=== PATIENT | female | born 1955 | race Caucasian/White ===

== ENCOUNTER 2023-03-24 13:49 | Inpatient (IN) | payer MEDICARE, BC ==
[~2023-03-24] VITALS: Ht 157.5 cm; Wt 45.8 kg
[2023-03-24 15:27] LABS: BASOPHILS # (AUTO) 0.1 K/uL (0.0-0.2); BASOPHILS % (AUTO) 1.1 % (0.0-2.0); EOSINOPHILS % (AUTO) 0.2 % (0.0-6.0); HEMATOCRIT 32 % (33-45); HEMOGLOBIN 10.9 g/dL (11.5-14.8); LYMPHOCYTES # (AUTO) 0.8 K/uL (0.8-4.8); LYMPHOCYTES % (AUTO) 11.2 % (20.0-44.0); MEAN CORPUSCULAR HEMOGLOBIN 37 PG (26.0-33.0); MEAN CORPUSCULAR HGB CONC 34 g/dl (31.0-36.0); MEAN CORPUSCULAR VOLUME 107 fL (82-100); MONOCYTES # (AUTO) 0.3 K/uL (0.1-1.30); NEUTROPHILS # (AUTO) 5.9 K/uL (1.8-8.9); NEUTROPHILS % (AUTO) 83.5 % (43.0-81.0); PLATELET COUNT (AUTO) 59 K/uL (150-450); RED BLOOD CELL COUNT(AUTO) 2.96 MIL/uL (4.0-5.2); RED CELL DISTRIBUTION WIDTH 19.6 % (11.5-15.0)
[2023-03-24 15:42] LABS: INR 1.46 (0.91-1.10); PARTIAL THROMBOPLASTIN TIME 31.5 SEC (24.3-34.3)
[2023-03-24 15:48] LABS: CARBON DIOXIDE 21 mmol/L (21-32); CHLORIDE 110 mmol/L (98-107); CREATININE 0.7 mg/dL (0.6-1.3); GLUCOSE 126 mg/dL (74-106); POTASSIUM 3.4 mmol/L (3.5-5.1); SODIUM SERUM 145 mmol/L (136-145); UREA NITROGEN, BLOOD 74 mg/dL (7-18)
[2023-03-24 15:55] LABS: ALANINE AMINOTRANSFERASE 60 U/L (12-78); ALBUMIN 2.6 g/dL (3.4-5.0); ALKALINE PHOSPHATASE 112 U/L (46-116); ASPARTATE AMINOTRANSFERASE 40 U/L (15-37); BILIRUBIN,DIRECT 0.5 mg/dL (0.0-0.2); BILIRUBIN,TOTAL 2.8 mg/dL (0.2-1.0); TOTAL PROTEIN, SERUM 5.9 g/dL (6.4-8.2)
[2023-03-24 15:58] LABS: BAND % (MANUAL) 8 % (0.0-5.0); LYMPHOCYTES % (MANUAL) 13 % (16-48); METAMYELOCYTES % 2 % (0-0); MONOCYTES % (MANUAL) 8 % (0-11.0); MYELOCYTES % 23 % (0-0); NEUTROPHILS % (MANUAL) 46 (42-76)
[2023-03-24 15:59] LABS: PLATELET ESTIMATE DECREASED
[2023-03-24 16:03] LABS: APPEARANCE,URINE CLEAR (CLEAR); BILIRUBIN,URINE NEGATIVE (NEGATIVE); BLOOD, URINE NEGATIVE Ery/uL (NEGATIVE); COLOR,URINE YELLOW (YELLOW); KETONES,URINE NEGATIVE (NEGATIVE); LEUKOCYTE ESTERASE ,URINE NEGATIVE (NEGATIVE); NITRITE, URINE NEGATIVE (NEGATIVE); PROTEIN,URINE NEGATIVE (NEGATIVE); UGLUCOSE NEGATIVE (NEGATIVE); UROBILINOGEN,URINE 0.2 EU/dL (0.2)
[2023-03-24 16:05] LABS: LACTIC ACID 1.5 mmol/L (0.4-2.0)
[2023-03-24] MEDS ORDERED: IV NS 0.9% 1,000 ML BAG IV ONE (16:30)
[2023-03-24] MEDS ORDERED: LEVOFLOXACIN 500 MG /D5W 100ML 500 MG/100 ML PIGGYBACK IV ONE (17:00)
[2023-03-24] MEDS ORDERED: POTASSIUM CHLORIDE 20 MEQ TAB.PRT.SR PO ONE (18:00)
[2023-03-24] MEDS ORDERED: ENOXAPARIN SODIUM 40 MG/0.4 ML DISP.SYRIN SQ SCH (18:00)
[2023-03-24] MEDS: LEVOFLOXACIN 500 MG /D5W 100ML 500 MG in PREMIX 1 EA IV SCH (18:00)
[2023-03-24] MEDS ORDERED: ONDANSETRON HCL/PF 4 MG/2 ML VIAL IVP PRN (18:00)
[2023-03-24] MEDS ORDERED: MAGNESIUM HYDROXIDE 30 ML UDC PO PRN (18:00)
[2023-03-24] MEDS ORDERED: ACETAMINOPHEN 325 MG TABLET PO PRN (18:00)
[2023-03-24] MEDS ORDERED: MAG HYDROX/AL HYDROX/SIMETH 30 ML UDC PO PRN (18:00)
[2023-03-24] MEDS ORDERED: Z GUARD REMEDY 4 OZ OINT TP PRN (18:00)
[2023-03-24 20:00] VITALS: BP 131/76; TEMP 97.8; O2SAT 97
[2023-03-24] MEDS: IV NS 0.9% 1,000 ML IV PRN (22:12)
[2023-03-25] VITALS: BP 125/57; TEMP 97.7; O2SAT 96
[2023-03-25 07:30] VITALS: BP 106/66; TEMP 97.8; O2SAT 92
[2023-03-25 09:36] LABS: BASOPHILS # (AUTO) 0.1 K/uL (0.0-0.2); EOSINOPHILS % (AUTO) 0.1 % (0.0-6.0); HEMATOCRIT 26 % (33-45); HEMOGLOBIN 9.2 g/dL (11.5-14.8); LYMPHOCYTES # (AUTO) 0.5 K/uL (0.8-4.8); LYMPHOCYTES % (AUTO) 9.2 % (20.0-44.0); MEAN CORPUSCULAR HEMOGLOBIN 37 PG (26.0-33.0); MEAN CORPUSCULAR HGB CONC 35 g/dl (31.0-36.0); MEAN CORPUSCULAR VOLUME 106 fL (82-100); MONOCYTES # (AUTO) 0.1 K/uL (0.1-1.30); MONOCYTES % (AUTO) 2.3 % (2.0-12.0); NEUTROPHILS % (AUTO) 87.4 % (43.0-81.0); PLATELET COUNT (AUTO) 51 K/uL (150-450); RED BLOOD CELL COUNT(AUTO) 2.48 MIL/uL (4.0-5.2); RED CELL DISTRIBUTION WIDTH 19.2 % (11.5-15.0); WHITE BLOOD COUNT (AUTO) 5.8 K/uL (4.3-11.0)
[2023-03-25 09:48] LABS: CALCIUM, SERUM 8.3 mg/dL (8.5-10.1); CREATININE 0.8 mg/dL (0.6-1.3); POTASSIUM 3.1 mmol/L (3.5-5.1)
[2023-03-25 09:49] LABS: MAGNESIUM 2.1 mg/dL (1.8-2.4); PHOSPHORUS 5.1 mg/dL (2.5-4.9)
[2023-03-25] MEDS ORDERED: POTA10CA43 PO (10:21)
[2023-03-25] MEDS ORDERED: POTA8TAB3 PO (10:21)
[2023-03-25 10:26] LABS: BAND % (MANUAL) 22 % (0.0-5.0); LYMPHOCYTES % (MANUAL) 14 % (16-48); METAMYELOCYTES % 2 % (0-0); MONOCYTES % (MANUAL) 2 % (0-11.0); MYELOCYTES % 2 % (0-0); NEUTROPHILS % (MANUAL) 58 (42-76); PLATELET ESTIMATE DECREASED
[2023-03-25 10:27] LABS: ANISOCYTOSIS 1+
[2023-03-25 10:28] LABS: OVALOCYTES 1+
[2023-03-25] MEDS ORDERED: DEXA1TAB PO (10:33)
[2023-03-25] MEDS ORDERED: DIGE1TAB PO (10:33)
[2023-03-25] MEDS ORDERED: BUDE3CAP15 PO (10:33)
[2023-03-25] MEDS ORDERED: ESCI5TAB PO (10:33)
[2023-03-25] MEDS ORDERED: ACYC400T19 PO ×2 (10:33)
[2023-03-25] MEDS ORDERED: CHOL200013 PO (10:33)
[2023-03-25] MEDS ORDERED: POTASSIUM CHLORIDE 20 MEQ TAB.PRT.SR PO ONE (11:30)
[2023-03-25] MEDS: IV NS 0.9% 1,000 ML IV PRN (11:36)
[2023-03-25] MEDS: ESCITALOPRAM OXALATE (10 MG) 10 MG TABLET PO SCH (12:05)
[2023-03-25] MEDS ORDERED: ONDANSETRON HCL/PF 4 MG/2 ML VIAL IVP PRN (12:30)
[2023-03-25] MEDS: ACYCLOVIR 200 MG CAPSULE PO SCH ×2 (13:35→17:25)
[2023-03-25] MEDS: BUDESONIDE 3 MG CAP.SR.24H PO SCH ×2 (13:35→17:25)
[2023-03-25 16:43] VITALS: BP 109/58; TEMP 99.1; O2SAT 90
[2023-03-25] MEDS ORDERED: ACYCLOVIR PO SCH (17:00)
[2023-03-25] MEDS: LEVOFLOXACIN 500 MG /D5W 100ML 500 MG in PREMIX 1 EA IV SCH (18:00)
[2023-03-25 19:25] LABS: D-DIMER 2.39 mg/L(FEU (0.17-0.50); INR 1.38 (0.91-1.10); PARTIAL THROMBOPLASTIN TIME 36.1 SEC (24.3-34.3); PROTHROMBIN TIME 14.2 SECS (9.2-11.1)
[2023-03-25 20:00] VITALS: BP 97/47; TEMP 99.7; O2SAT 98
[2023-03-25 20:06] LABS: THYROID STIMULATING HORMONE 3.203 uIU/mL (0.358-3.74)
[2023-03-25 21:10] LABS: RHEUMATOID FACTOR SCREEN NEGATIVE (NEGATIVE)
[2023-03-25] MEDS: MUPIROCIN OINT 2% 22 GM TUBE NS SCH (21:29)
[2023-03-26] VITALS (10 sets, daily range): BP systolic 84–97; BP diastolic 41–48; TEMP 97.3–98.8; O2SAT 93–99
[2023-03-26] MEDS: IV NS 0.9% 1,000 ML IV PRN (03:50)
[2023-03-26] MEDS: BUDESONIDE 3 MG CAP.SR.24H PO SCH ×3 (08:40→18:11)
[2023-03-26] MEDS: ACYCLOVIR 200 MG CAPSULE PO SCH ×3 (08:41→18:12)
[2023-03-26] MEDS: ESCITALOPRAM OXALATE (10 MG) 10 MG TABLET PO SCH (08:44)
[2023-03-26] MEDS: MUPIROCIN OINT 2% 22 GM TUBE NS SCH ×2 (08:46→22:10)
[2023-03-26 08:59] LABS: CALCIUM, SERUM 7.8 mg/dL (8.5-10.1); CREATININE 1.1 mg/dL (0.6-1.3)
[2023-03-26] MEDS ORDERED: dexAMETHasone 1 MG TABLET PO SCH (09:00)
[2023-03-26 09:16] LABS: BASOPHILS % (AUTO) 0.2 % (0.0-2.0); LYMPHOCYTES # (AUTO) 0.4 K/uL (0.8-4.8); LYMPHOCYTES % (AUTO) 11.3 % (20.0-44.0); MEAN CORPUSCULAR HEMOGLOBIN 37 PG (26.0-33.0); MEAN CORPUSCULAR HGB CONC 34 g/dl (31.0-36.0); MEAN CORPUSCULAR VOLUME 108 fL (82-100); MONOCYTES # (AUTO) 0.1 K/uL (0.1-1.30); MONOCYTES % (AUTO) 2.7 % (2.0-12.0); NEUTROPHILS # (AUTO) 3.1 K/uL (1.8-8.9); NEUTROPHILS % (AUTO) 85.8 % (43.0-81.0); WHITE BLOOD COUNT (AUTO) 3.7 K/uL (4.3-11.0)
[2023-03-26 09:20] LABS: RED BLOOD CELL COUNT(AUTO) 1.79 MIL/uL (4.0-5.2)
[2023-03-26 09:22] LABS: HEMATOCRIT 19 % (33-45); HEMOGLOBIN 6.7 g/dL (11.5-14.8); PLATELET COUNT (AUTO) 28 K/uL (150-450)
[2023-03-26 09:57] LABS: POTASSIUM 2.2 mmol/L (3.5-5.1)
[2023-03-26] MEDS ORDERED: POTASSIUM CHLORIDE 20 MEQ TAB.PRT.SR PO ONE (11:30)
[2023-03-26 13:35] LABS: ANISOCYTOSIS 1+; BASOPHILS % (MANUAL) 0 % (0.0-2.0); EOSINOPHILS % (MANUAL) 0 % (0-4); HYPOCHROMASIA 1+; LYMPHOCYTES % (MANUAL) 10 % (16-48); MONOCYTES % (MANUAL) 3 % (0-11.0); NEUTROPHILS % (MANUAL) 87 (42-76); PLATELET ESTIMATE DECREASED
[2023-03-26 15:54] LABS: OCCULT BLOOD STOOL NEGATIVE (NEGATIVE)
[2023-03-26] MEDS: ENSURE ENLIVE 237 ML LIQUID (VANILLA) PO SCH (17:00)
[2023-03-26] MEDS: LEVOFLOXACIN 500 MG /D5W 100ML 500 MG in PREMIX 1 EA IV SCH (18:00)
[2023-03-26] MEDS ORDERED: methylPREDNISolone SOD SUCC 125 MG/2ML VIAL IV SCH (18:30)
[2023-03-26 19:07] LABS: HEMOGLOBIN 7.9 g/dL (11.5-14.8)
[2023-03-26 19:21] LABS: BILIRUBIN,DIRECT 0.4 mg/dL (0.0-0.2)
[2023-03-26] MEDS: dexaMETHasone SOD PHOSPHATE 10 MG/ML VIAL IV SCH (20:24)
[2023-03-26] MEDS: THERAHONEY GEL 1.5 OZ TUBE TP SCH (23:00)
[2023-03-27 04:00] VITALS: BP 98/65; TEMP 98.8; O2SAT 92
[2023-03-27 06:30] LABS: ALBUMIN 1.7 g/dL (3.4-5.0); BILIRUBIN,DIRECT 0.4 mg/dL (0.0-0.2); BILIRUBIN,TOTAL 3.2 mg/dL (0.2-1.0); CALCIUM, SERUM 7.6 mg/dL (8.5-10.1); CREATININE 0.8 mg/dL (0.6-1.3); MAGNESIUM 1.7 mg/dL (1.8-2.4); POTASSIUM 3.4 mmol/L (3.5-5.1); TOTAL PROTEIN, SERUM 4.5 g/dL (6.4-8.2)
[2023-03-27 07:02] LABS: BASOPHILS % (AUTO) 0.2 % (0.0-2.0); HEMATOCRIT 25 % (33-45); HEMOGLOBIN 8.8 g/dL (11.5-14.8); LYMPHOCYTES # (AUTO) 0.4 K/uL (0.8-4.8); LYMPHOCYTES % (AUTO) 6.2 % (20.0-44.0); MEAN CORPUSCULAR HEMOGLOBIN 35 PG (26.0-33.0); MEAN CORPUSCULAR HGB CONC 35 g/dl (31.0-36.0); MEAN CORPUSCULAR VOLUME 101 fL (82-100); MONOCYTES # (AUTO) 0.1 K/uL (0.1-1.30); MONOCYTES % (AUTO) 1.9 % (2.0-12.0); NEUTROPHILS # (AUTO) 5.5 K/uL (1.8-8.9); NEUTROPHILS % (AUTO) 91.7 % (43.0-81.0); RED BLOOD CELL COUNT(AUTO) 2.52 MIL/uL (4.0-5.2); RED CELL DISTRIBUTION WIDTH 22.2 % (11.5-15.0)
[2023-03-27] MEDS ORDERED: POTASSIUM CHLORIDE 20 MEQ TAB.PRT.SR PO ONE (07:30)
[2023-03-27 07:55] LABS: PLATELET COUNT (AUTO) 24 K/uL (150-450)
[2023-03-27 08:00] VITALS: BP 92/60; TEMP 94; O2SAT 92
[2023-03-27 08:07] LABS: IMMUNOGLOBULIN A, SERUM 112 mg/dL (87-352); IMMUNOGLOBULIN G, SERUM 639 mg/dL (586-1602)
[2023-03-27] MEDS: MAGNESIUM OXIDE 400 MG TABLET PO SCH (08:54)
[2023-03-27] MEDS: dexaMETHasone SOD PHOSPHATE 10 MG/ML VIAL IV SCH (08:54)
[2023-03-27] MEDS: ESCITALOPRAM OXALATE (10 MG) 10 MG TABLET PO SCH (08:54)
[2023-03-27] MEDS: THERAHONEY GEL 1.5 OZ TUBE TP SCH (09:06)
[2023-03-27] MEDS: MUPIROCIN OINT 2% 22 GM TUBE NS SCH ×2 (09:06→20:34)
[2023-03-27 09:07] LABS: *ANA ANTI-CENTROMERE B AB <0.2 AI (0.0-0.9); *ANA ANTI-DNA(DS) AB, QN <1 IU/mL (0-9); *ANA ANTI-JO-1 <0.2 AI (0.0-0.9); *ANA ANTICHROMATIN ANTIBODY <0.2 AI (0.0-0.9); *ANA RNP ANTIBODIES <0.2 AI (0.0-0.9); *ANA SJOGREN'S ANTI-SS-A <0.2 AI (0.0-0.9); *ANA SJOGREN'S ANTI-SS-B <0.2 AI (0.0-0.9); *ANAANTI-SCLERODERMA-70 AB <0.2 AI (0.0-0.9); *ANASMITH AB <0.2 AI (0.0-0.9)
[2023-03-27] MEDS: ENSURE ENLIVE 237 ML LIQUID (VANILLA) PO SCH ×2 (09:07→18:17)
[2023-03-27] MEDS: BUDESONIDE 3 MG CAP.SR.24H PO SCH ×3 (09:10→18:19)
[2023-03-27] MEDS: ACYCLOVIR 200 MG CAPSULE PO SCH ×3 (09:14→18:27)
[2023-03-27 11:31] LABS: BAND % (MANUAL) 16 % (0.0-5.0); LYMPHOCYTES % (MANUAL) 6 % (16-48); METAMYELOCYTES % 10 % (0-0); MONOCYTES % (MANUAL) 3 % (0-11.0); MYELOCYTES % 3 % (0-0); NEUTROPHILS % (MANUAL) 62 (42-76); PLATELET ESTIMATE DECREASED
[2023-03-27 11:32] LABS: ANISOCYTOSIS 1+; HYPOCHROMASIA 1+
[2023-03-27 12:07] LABS: HEPATITIS B SURFACE AB Non Reactive (.)
[2023-03-27 13:35] VITALS: BP 92/60; TEMP 98.5; O2SAT 92
[2023-03-27 14:07] LABS: *SPE ALBUMIN 2.2 g/dL (2.9-4.4); *SPE ALPHA-1-GLOBULIN 0.4 g/dL (0.0-0.4); *SPE ALPHA-2-GLOBULIN 0.6 g/dL (0.4-1.0); *SPE BETA GLOBULIN 0.5 g/dL (0.7-1.3); *SPE GLOBULIN, TOTAL 2.3 g/dL (2.2-3.9); *SPE M-SPIKE 0.3 g/dL (Not Observed); *SPE PROTEIN TOTAL 4.5 g/dL (6.0-8.5); *SPEGAMMA GLOBULIN 0.7 g/dL (0.4-1.8)
[2023-03-27] MEDS: LEVOFLOXACIN (250MG) 250 MG TABLET PO SCH ×2 (18:00→18:27)
[2023-03-27 20:03] VITALS: BP 98/64; TEMP 94; O2SAT 98
[2023-03-27 20:07] VITALS: BP 108/62; TEMP 97.9; O2SAT 93
[2023-03-28 00:48] VITALS: BP 105/53; TEMP 97.4; O2SAT 93
[2023-03-28 04:47] VITALS: BP 110/72; TEMP 97.4; O2SAT 91
[2023-03-28 08:00] VITALS: BP 108/70; TEMP 97.9; O2SAT 92
[2023-03-28] MEDS: BUDESONIDE 3 MG CAP.SR.24H PO SCH ×3 (08:00→17:44)
[2023-03-28] MEDS ORDERED: POTASSIUM CHLORIDE 20 MEQ TAB.PRT.SR PO ONE (08:00)
[2023-03-28] MEDS: MAGNESIUM OXIDE 400 MG TABLET PO SCH (10:04)
[2023-03-28] MEDS: ACYCLOVIR 200 MG CAPSULE PO SCH ×3 (10:05→17:45)
[2023-03-28] MEDS: ESCITALOPRAM OXALATE (10 MG) 10 MG TABLET PO SCH (10:05)
[2023-03-28] MEDS: dexaMETHasone SOD PHOSPHATE 10 MG/ML VIAL IV SCH (10:06)
[2023-03-28 10:15] VITALS: BP 108/70; TEMP 97.9; O2SAT 92
[2023-03-28 11:07] LABS: FOLIC ACID 11.2 ng/mL (>3.0); IMMUNOGLOBULIN M, SERUM 168 mg/dL (26-217)
[2023-03-28 11:15] LABS: CALCIUM, SERUM 7.7 mg/dL (8.5-10.1); CREATININE 0.8 mg/dL (0.6-1.3); MAGNESIUM 1.7 mg/dL (1.8-2.4); PHOSPHORUS 3.7 mg/dL (2.5-4.9)
[2023-03-28 11:27] LABS: BASOPHILS % (AUTO) 0.3 % (0.0-2.0); HEMATOCRIT 31 % (33-45); HEMOGLOBIN 10.9 g/dL (11.5-14.8); LYMPHOCYTES # (AUTO) 0.2 K/uL (0.8-4.8); LYMPHOCYTES % (AUTO) 2.9 % (20.0-44.0); MEAN CORPUSCULAR HEMOGLOBIN 35 PG (26.0-33.0); MEAN CORPUSCULAR HGB CONC 35 g/dl (31.0-36.0); MEAN CORPUSCULAR VOLUME 100 fL (82-100); MONOCYTES % (AUTO) 0.7 % (2.0-12.0); NEUTROPHILS # (AUTO) 4.9 K/uL (1.8-8.9); NEUTROPHILS % (AUTO) 96.1 % (43.0-81.0); RED BLOOD CELL COUNT(AUTO) 3.08 MIL/uL (4.0-5.2); RED CELL DISTRIBUTION WIDTH 22.8 % (11.5-15.0); WHITE BLOOD COUNT (AUTO) 5.1 K/uL (4.3-11.0)
[2023-03-28] MEDS: ENSURE ENLIVE 237 ML LIQUID (VANILLA) PO SCH ×2 (11:56→17:00)
[2023-03-28] MEDS: MUPIROCIN OINT 2% 22 GM TUBE NS SCH ×2 (11:59→20:53)
[2023-03-28 12:01] LABS: PLATELET COUNT (AUTO) 40 K/uL (150-450)
[2023-03-28] MEDS: THERAHONEY GEL 1.5 OZ TUBE TP SCH (12:02)
[2023-03-28 13:59] LABS: BAND % (MANUAL) 22 % (0.0-5.0); LYMPHOCYTES % (MANUAL) 5 % (16-48); METAMYELOCYTES % 1 % (0-0); MONOCYTES % (MANUAL) 1 % (0-11.0); NEUTROPHILS % (MANUAL) 71 (42-76); PLATELET ESTIMATE DECREASED
[2023-03-28 14:01] LABS: ANISOCYTOSIS 2+; OVALOCYTES 1+
[2023-03-28 16:00] VITALS: BP 82/45; TEMP 98.1; O2SAT 92
[2023-03-28] MEDS: LEVOFLOXACIN (250MG) 250 MG TABLET PO SCH (17:58)
[2023-03-28 20:00] VITALS: BP 99/52; TEMP 97.7; O2SAT 92
[2023-03-29] VITALS (8 sets, daily range): BP systolic 83–107; BP diastolic 46–69; TEMP 97.5–98.7; O2SAT 93–98
[2023-03-29 06:50] LABS: BASOPHILS # (AUTO) 0.1 K/uL (0.0-0.2); BASOPHILS % (AUTO) 2.3 % (0.0-2.0); EOSINOPHILS % (AUTO) 0.1 % (0.0-6.0); HEMATOCRIT 27 % (33-45); HEMOGLOBIN 9.2 g/dL (11.5-14.8); LYMPHOCYTES # (AUTO) 0.1 K/uL (0.8-4.8); LYMPHOCYTES % (AUTO) 4.3 % (20.0-44.0); MEAN CORPUSCULAR HEMOGLOBIN 34 PG (26.0-33.0); MEAN CORPUSCULAR HGB CONC 34 g/dl (31.0-36.0); MEAN CORPUSCULAR VOLUME 100 fL (82-100); MONOCYTES % (AUTO) 0.5 % (2.0-12.0); NEUTROPHILS # (AUTO) 2.9 K/uL (1.8-8.9); NEUTROPHILS % (AUTO) 92.8 % (43.0-81.0); RED BLOOD CELL COUNT(AUTO) 2.68 MIL/uL (4.0-5.2); RED CELL DISTRIBUTION WIDTH 21.6 % (11.5-15.0); WHITE BLOOD COUNT (AUTO) 3.1 K/uL (4.3-11.0)
[2023-03-29 07:01] LABS: PLATELET COUNT (AUTO) 31 K/uL (150-450)
[2023-03-29] MEDS ORDERED: POTASSIUM PHOSPHATE MM 7.5 MMOL in IV NS 0.9% 100 ML IV SCH (08:00)
[2023-03-29] MEDS: ESCITALOPRAM OXALATE (10 MG) 10 MG TABLET PO SCH (09:10)
[2023-03-29] MEDS: MAGNESIUM OXIDE 400 MG TABLET PO SCH (09:11)
[2023-03-29] MEDS: ACYCLOVIR 200 MG CAPSULE PO SCH ×3 (09:12→17:16)
[2023-03-29] MEDS: dexaMETHasone SOD PHOSPHATE 10 MG/ML VIAL IV SCH (09:13)
[2023-03-29] MEDS: BUDESONIDE 3 MG CAP.SR.24H PO SCH ×3 (09:15→17:16)
[2023-03-29] MEDS: MUPIROCIN OINT 2% 22 GM TUBE NS SCH ×2 (09:16→20:38)
[2023-03-29] MEDS: THERAHONEY GEL 1.5 OZ TUBE TP SCH (09:16)
[2023-03-29] MEDS: ENSURE ENLIVE 237 ML LIQUID (VANILLA) PO SCH ×2 (09:40→17:17)
[2023-03-29 09:50] LABS: CALCIUM, SERUM 7.8 mg/dL (8.5-10.1); CREATININE 0.6 mg/dL (0.6-1.3); POTASSIUM 3.8 mmol/L (3.5-5.1)
[2023-03-29] MEDS ORDERED: DEXTROSE 50%-WATER 50 ML DISP.SYRIN IVP ONE (10:30)
[2023-03-29] MEDS ORDERED: IV D5/0.45 NACL 1,000 ML IV ONE (10:30)
[2023-03-29] MEDS: IV D5/0.45 NACL 1,000 ML IV PRN (11:04)
[2023-03-29] MEDS: BLOOD SUGAR DIAGNOSTIC 1 EACH STRIP IN SCH ×4 (12:07→21:43)
[2023-03-29 13:06] LABS: FREE LAMBDA LT CHAIN SERUM 3.8 mg/L (5.7-26.3); KAPPA/LAMBDA RATIO SERUM 12.37 (0.26-1.65)
[2023-03-29 13:20] LABS: ANISOCYTOSIS 1+; BASOPHILS % (MANUAL) 0 % (0.0-2.0); EOSINOPHILS % (MANUAL) 0 % (0-4); LYMPHOCYTES % (MANUAL) 9 % (16-48); MONOCYTES % (MANUAL) 4 % (0-11.0); NEUTROPHILS % (MANUAL) 87 (42-76); PLATELET ESTIMATE DECREASED
[2023-03-29] MEDS: LEVOFLOXACIN (250MG) 250 MG TABLET PO SCH (17:17)
[2023-03-29 19:15] LABS: HEMOGLOBIN 6.8 g/dL (11.5-14.8)
[2023-03-30] VITALS (11 sets, daily range): BP systolic 98–110; BP diastolic 59–75; TEMP 97.4–99.1; O2SAT 93–97
[2023-03-30] MEDS: IV D5/0.45 NACL 1,000 ML IV PRN ×2 (03:33→19:31)
[2023-03-30 06:33] LABS: CALCIUM, SERUM 7.6 mg/dL (8.5-10.1); CREATININE 0.7 mg/dL (0.6-1.3); PHOSPHORUS 4.6 mg/dL (2.5-4.9); POTASSIUM 3.4 mmol/L (3.5-5.1)
[2023-03-30] MEDS: BLOOD SUGAR DIAGNOSTIC 1 EACH STRIP IN SCH ×4 (06:33→21:10)
[2023-03-30 08:32] LABS: BASOPHILS % (AUTO) 0.2 % (0.0-2.0); HEMATOCRIT 32 % (33-45); HEMOGLOBIN 10.7 g/dL (11.5-14.8); LYMPHOCYTES # (AUTO) 0.1 K/uL (0.8-4.8); LYMPHOCYTES % (AUTO) 1.8 % (20.0-44.0); MEAN CORPUSCULAR HEMOGLOBIN 34 PG (26.0-33.0); MEAN CORPUSCULAR HGB CONC 34 g/dl (31.0-36.0); MEAN CORPUSCULAR VOLUME 99 fL (82-100); MONOCYTES % (AUTO) 0.3 % (2.0-12.0); NEUTROPHILS # (AUTO) 6.1 K/uL (1.8-8.9); NEUTROPHILS % (AUTO) 97.7 % (43.0-81.0); RED BLOOD CELL COUNT(AUTO) 3.19 MIL/uL (4.0-5.2); RED CELL DISTRIBUTION WIDTH 20.9 % (11.5-15.0); WHITE BLOOD COUNT (AUTO) 6.2 K/uL (4.3-11.0)
[2023-03-30] MEDS: dexaMETHasone SOD PHOSPHATE 10 MG/ML VIAL IV SCH (08:40)
[2023-03-30] MEDS: MUPIROCIN OINT 2% 22 GM TUBE NS SCH ×2 (08:40→21:00)
[2023-03-30] MEDS: ESCITALOPRAM OXALATE (10 MG) 10 MG TABLET PO SCH (08:40)
[2023-03-30] MEDS: BUDESONIDE 3 MG CAP.SR.24H PO SCH ×3 (08:40→17:39)
[2023-03-30] MEDS: ACYCLOVIR 200 MG CAPSULE PO SCH ×3 (08:40→17:39)
[2023-03-30] MEDS: MAGNESIUM OXIDE 400 MG TABLET PO SCH ×2 (08:40→08:59)
[2023-03-30] MEDS: THERAHONEY GEL 1.5 OZ TUBE TP SCH (08:41)
[2023-03-30 08:42] LABS: PLATELET COUNT (AUTO) 19 K/uL (150-450)
[2023-03-30] MEDS ORDERED: POTASSIUM CHLORIDE 20 MEQ TAB.PRT.SR PO SCH (09:00)
[2023-03-30] MEDS: ENSURE ENLIVE 237 ML LIQUID (VANILLA) PO SCH ×2 (09:05→17:40)
[2023-03-30 12:16] LABS: ANISOCYTOSIS 1+; BAND % (MANUAL) 22 % (0.0-5.0); BASOPHILS % (MANUAL) 0 % (0.0-2.0); EOSINOPHILS % (MANUAL) 0 % (0-4); LYMPHOCYTES % (MANUAL) 5 % (16-48); MONOCYTES % (MANUAL) 2 % (0-11.0); NEUTROPHILS % (MANUAL) 71 (42-76); PLATELET ESTIMATE DECREASED
[2023-03-30] MEDS: LEVOFLOXACIN (250MG) 250 MG TABLET PO SCH (17:39)
[2023-03-30] MEDS ORDERED: IV NS 0.9% 1,000 ML IV ONE ×2 (21:00)
[2023-03-31] VITALS (47 sets, daily range): BP systolic 74–121; BP diastolic 43–85; TEMP 97.7–99; O2SAT 64–96
[2023-03-31 05:13] LABS: BASOPHILS % (AUTO) 0.2 % (0.0-2.0); HEMATOCRIT 27 % (33-45); HEMOGLOBIN 9.4 g/dL (11.5-14.8); LYMPHOCYTES # (AUTO) 0.1 K/uL (0.8-4.8); MEAN CORPUSCULAR HEMOGLOBIN 33 PG (26.0-33.0); MEAN CORPUSCULAR HGB CONC 35 g/dl (31.0-36.0); MEAN CORPUSCULAR VOLUME 96 fL (82-100); MONOCYTES % (AUTO) 0.5 % (2.0-12.0); NEUTROPHILS # (AUTO) 6.1 K/uL (1.8-8.9); NEUTROPHILS % (AUTO) 97.3 % (43.0-81.0); RED CELL DISTRIBUTION WIDTH 20.3 % (11.5-15.0); WHITE BLOOD COUNT (AUTO) 6.3 K/uL (4.3-11.0)
[2023-03-31 05:18] LABS: CALCIUM, SERUM 7.3 mg/dL (8.5-10.1); CREATININE 0.6 mg/dL (0.6-1.3)
[2023-03-31 05:25] LABS: PLATELET COUNT (AUTO) 9 K/uL (150-450)
[2023-03-31 05:28] LABS: POTASSIUM 2.5 mmol/L (3.5-5.1)
[2023-03-31 05:52] LABS: BAND % (MANUAL) 3 % (0.0-5.0); LYMPHOCYTES % (MANUAL) 5 % (16-48); METAMYELOCYTES % 11 % (0-0); MONOCYTES % (MANUAL) 1 % (0-11.0); MYELOCYTES % 31 % (0-0); NEUTROPHILS % (MANUAL) 49 (42-76)
[2023-03-31 05:53] LABS: PLATELET ESTIMATE DECREASED
[2023-03-31 05:54] LABS: HOWELL-JOLLY BODIES 2+
[2023-03-31] MEDS: POTASSIUM CHLORIDE 10 MEQ/50 ML PREMIXED IVPB FOR PERIPHERAL LINE IV SCH ×2 (06:13→08:25)
[2023-03-31] MEDS: BLOOD SUGAR DIAGNOSTIC 1 EACH STRIP IN SCH ×4 (08:26→17:44)
[2023-03-31] MEDS: MAGNESIUM OXIDE 400 MG TABLET PO SCH (08:41)
[2023-03-31] MEDS: ESCITALOPRAM OXALATE (10 MG) 10 MG TABLET PO SCH (08:41)
[2023-03-31] MEDS: dexaMETHasone SOD PHOSPHATE 10 MG/ML VIAL IV SCH (08:42)
[2023-03-31] MEDS: MUPIROCIN OINT 2% 22 GM TUBE NS SCH ×2 (08:42→21:55)
[2023-03-31] MEDS: ENSURE ENLIVE 237 ML LIQUID (VANILLA) PO SCH ×2 (08:42→16:35)
[2023-03-31] MEDS: THERAHONEY GEL 1.5 OZ TUBE TP SCH (08:43)
[2023-03-31] MEDS ORDERED: POTASSIUM CHLORIDE 20 MEQ TAB.PRT.SR PO ONE (09:30)
[2023-03-31] MEDS ORDERED: NOREPINEPHRINE 8 MG in IV NS 0.9% 242 ML IV PRN (09:30)
[2023-03-31] MEDS: ACYCLOVIR 200 MG CAPSULE PO SCH ×3 (09:52→17:44)
[2023-03-31] MEDS: MIDODRINE HCL (5MG) 5 MG TABLET PO SCH ×3 (09:53→17:44)
[2023-03-31] MEDS: BUDESONIDE 3 MG CAP.SR.24H PO SCH ×3 (09:53→17:45)
[2023-03-31] MEDS: NOREPINEPHRINE 8 MG in IV NS 0.9% 242 ML IV PRN ×2 (10:00→21:11)
[2023-03-31] MEDS ORDERED: FUROSEMIDE 40 MG/4 ML VIAL IV ONE (10:30)
[2023-03-31] MEDS ORDERED: INSULIN REGULAR, HUMAN 100 UNIT/ML 3 ML VIAL SQ PRN (12:00)
[2023-03-31 12:32] LABS: POTASSIUM 3.7 mmol/L (3.5-5.1)
[2023-03-31] MEDS: LEVOFLOXACIN (250MG) 250 MG TABLET PO SCH (17:46)
[2023-03-31] MEDS: DEXTROSE 50%-WATER 50 ML DISP.SYRIN IV PRN ×2 (17:56→21:34)
[2023-04-01] VITALS (20 sets, daily range): BP systolic 45–119; BP diastolic 29–71; TEMP 96.1–97.8; O2SAT 86–92
[2023-04-01] MEDS: BLOOD SUGAR DIAGNOSTIC 1 EACH STRIP IN SCH ×2 (00:47→04:51)
[2023-04-01] MEDS: DEXTROSE 50%-WATER 50 ML DISP.SYRIN IV PRN (02:45)
[2023-04-01] MEDS ORDERED: IV 10% DEXTROSE 1,000 ML IV PRN (03:30)
[2023-04-01] MEDS ORDERED: NOREPINEPHRINE 8MG/250ML RTU 250 ML IV ONE (04:36)
[2023-04-01] MEDS: NOREPINEPHRINE 8 MG in IV NS 0.9% 242 ML IV PRN (04:40)
[2023-04-01 05:26] LABS: BASOPHILS % (AUTO) 0.1 % (0.0-2.0); HEMATOCRIT 27 % (33-45); HEMOGLOBIN 9.3 g/dL (11.5-14.8); LYMPHOCYTES # (AUTO) 0.2 K/uL (0.8-4.8); LYMPHOCYTES % (AUTO) 2.6 % (20.0-44.0); MEAN CORPUSCULAR HEMOGLOBIN 34 PG (26.0-33.0); MEAN CORPUSCULAR HGB CONC 35 g/dl (31.0-36.0); MEAN CORPUSCULAR VOLUME 97 fL (82-100); MONOCYTES # (AUTO) 0.1 K/uL (0.1-1.30); NEUTROPHILS # (AUTO) 9.1 K/uL (1.8-8.9); NEUTROPHILS % (AUTO) 96.3 % (43.0-81.0); RED BLOOD CELL COUNT(AUTO) 2.77 MIL/uL (4.0-5.2); RED CELL DISTRIBUTION WIDTH 21.4 % (11.5-15.0); WHITE BLOOD COUNT (AUTO) 9.4 K/uL (4.3-11.0)
[2023-04-01 05:30] LABS: CALCIUM, SERUM 7.2 mg/dL (8.5-10.1); CREATININE 0.7 mg/dL (0.6-1.3); PHOSPHORUS 6.1 mg/dL (2.5-4.9); POTASSIUM 4.2 mmol/L (3.5-5.1)
[2023-04-01 05:43] LABS: PLATELET COUNT (AUTO) 17 K/uL (150-450)
[2023-04-01 06:19] LABS: BAND % (MANUAL) 2 % (0.0-5.0); LYMPHOCYTES % (MANUAL) 4 % (16-48); METAMYELOCYTES % 4 % (0-0); MONOCYTES % (MANUAL) 7 % (0-11.0); MYELOCYTES % 29 % (0-0); NEUTROPHILS % (MANUAL) 54 (42-76); PLATELET ESTIMATE DECREASED
[2023-04-01 06:20] LABS: ANISOCYTOSIS 1+
[2023-04-01] MEDS ORDERED: NOREPINEPHRINE 32 MG in IV NS 0.9% 250 ML IV PRN (08:30)
[2023-04-01] MEDS ORDERED: PHENYLEPHRINE 100 MG in IV NS 0.9% 240 ML IV PRN (08:30)
[2023-04-01] MEDS ORDERED: LEVOFLOXACIN 500 MG /D5W 100ML 500 MG in PREMIX 1 EA IV SCH (18:00)
[2023-04-01] MEDS ORDERED: LEVOFLOXACIN 250 MG /D5W 50 ML 250 MG in PREMIX 1 EA IV SCH (18:00)
== END 2023-04-01 09:02 | DRG 177 ==
LOC: ER 13:59 → MED 17:43 → TELE 22:29 → ICU 03-30 21:31
PROVIDERS: ADMIT Internal Medicine; ATTEND Internal Medicine
PROC: 30233N1 Transfusion of Nonautologous Red Blood Cells into Peripheral Vein, Percutaneous Approach (ICD-10-PCS; principal; 2023-03-26)
PROC: 30233R1 Transfusion of Nonautologous Platelets into Peripheral Vein, Percutaneous Approach (ICD-10-PCS; 2023-03-31)
PROC: 05H633Z Insertion of Infusion Device into Left Subclavian Vein, Percutaneous Approach (ICD-10-PCS; 2023-03-31)
PROC: B547ZZA Ultrasonography of Left Subclavian Vein, Guidance (ICD-10-PCS; 2023-03-31)
DX: J15.6 Pneumonia due to other Gram-negative bacteria (principal); E43 Unspecified severe protein-calorie malnutrition; N17.0 Acute kidney failure with tubular necrosis; J96.01 Acute respiratory failure with hypoxia; I50.22 Chronic systolic (congestive) heart failure; D61.818 Other pancytopenia; E87.0 Hyperosmolality and hypernatremia; R64 Cachexia; C86.5 Angioimmunoblastic T-cell lymphoma; Z68.1 Body mass index [BMI] 19.9 or less, adult; D84.9 Immunodeficiency, unspecified; D68.8 Other specified coagulation defects; J98.11 Atelectasis; E88.09 Other disorders of plasma-protein metabolism, not elsewhere classified; R53.1 Weakness; D53.9 Nutritional anemia, unspecified; E83.39 Other disorders of phosphorus metabolism; E87.6 Hypokalemia; F32.A Depression, unspecified; I11.0 Hypertensive heart disease with heart failure; E80.6 Other disorders of bilirubin metabolism; K21.9 Gastro-esophageal reflux disease without esophagitis; Z88.0 Allergy status to penicillin; Z88.2 Allergy status to sulfonamides; Z88.6 Allergy status to analgesic agent; Z92.21 Personal history of antineoplastic chemotherapy; Z91.199 Patient's noncompliance with other medical treatment and regimen due to unspecified reason; D69.59 Other secondary thrombocytopenia; D50.9 Iron deficiency anemia, unspecified; L89.106 Pressure-induced deep tissue damage of unspecified part of back; L89.156 Pressure-induced deep tissue damage of sacral region; S50.811A Abrasion of right forearm, initial encounter; X58.XXXA Exposure to other specified factors, initial encounter; Y93.9 Activity, unspecified; Y92.009 Unspecified place in unspecified non-institutional (private) residence as the place of occurrence of the external cause; D47.2 Monoclonal gammopathy; Z66 Do not resuscitate; Z88.3 Allergy status to other anti-infective agents; Z88.1 Allergy status to other antibiotic agents; D63.8 Anemia in other chronic diseases classified elsewhere; R57.0 Cardiogenic shock
CPT/HCPCS: 36410; 36415; 70450-TC; 71045-TC; 77075-TC; 80048-TC; 80061-TC; 80076-TC; 82232; 82247-TC; 82248-TC; 82272-TC; 82607-TC; 82728-TC; 82784; 82962-TC; 83010; 83540-TC; 83605-TC; 83615-TC; 83735-TC; 84100-TC; 84132-TC; 84155; 84165; 84295-TC; 84443-TC; 84484-TC; 85025-TC; 85027-TC; 85045-TC; 85396; 85730-TC; 86225; 86235; 86334; 86431-TC; 86706; 86803; 86850-TC; 86880-TC; 87040-TC; 87081-TC; 87086-TC; 87340; 93970-TC; 94799-TC; 97110-TC; 97530-TC; A4216; A4223; A6253; A6403; G0378; J1100; J1650; J1815; J1940; J1956; J2370; J3480; J3490; J7030; J7042; J7050; J7060; J8540; P9016; P9034